=== PATIENT | female | born 1975 | race Caucasian/White ===

== ENCOUNTER 2016-04-05 14:01 | Emergency (ER) | payer BC ==
[2016-04-05 14:29] VITALS: BP 109/69
--- NOTE | 2016-04-05 14:39 | UC ---
Throat Pain/Nasal Ronal HPI - HPI Summary HPI Summary: sore throat x 1 days no nasal congestion, no cough, no fever son and have strep - History of Current Complaint Chief Complaint: UCGeneralIllness Stated Complaint: SORE THROAT Time Seen by Provider: 04/05/16 14:18 Hx Obtained From: Patient Hx Last Menstrual Period: 03/11/16 Onset/Duration: Gradual Onset, Lasting Days - 1, Still Present Severity: Moderate Cough: None Associated Signs & Symptoms: Negative: Sinus Discomfort, Nasal Discharge, Fever , Rash - Allergies/Home Medications Allergies/Adverse Reactions: Allergies Allergy/AdvReac Type Severity Reaction Status Date / Time Penicillins Allergy Intermediate Hives Verified 12/18/13 19:37 Home Medications: Home Medications Bcp 1 tab PO DAILY 04/05/16 [History] PMH/Surg Hx/FS Hx/Imm Hx Previously Healthy: Yes - Surgical History Surgical History: Yes Surgery Procedure, Year, and Place: 3 C-SECTS. CHOLECYSTECTOMY - Family History Known Family History: Negative: Diabetes - Social History Alcohol Use: Occasionally Alcohol Amount: wine Substance Use Type: None Smoking Status (MU): Never Smoked Tobacco Review of Systems Constitutional: Negative Skin: Negative Eyes: Negative ENT: Sore Throat Respiratory: Negative Cardiovascular: Negative All Other Systems Reviewed And Are Negative: Yes Physical Exam Triage Information Reviewed: Yes Appearance: Well-Appearing, No Pain Distress, Well-Nourished Vital Signs: Initial Vital Signs Temp 98.4 F 04/05/16 14:20 Pulse 85 04/05/16 14:20 Resp 16 04/05/16 14:20 BP 109/69 04/05/16 14:20 Pulse Ox 99 04/05/16 14:20 Vital Signs Reviewed: Yes Eye Exam: Normal Eyes: Positive: Conjunctiva Clear ENT: Positive: Normal ENT inspection, Hearing grossly normal, Pharynx normal. Negative: Pharyngeal erythema, Nasal congestion, Nasal drainage Neck: Positive: Supple, Nontender, No Lymphadenopathy Respiratory Exam: Normal Respiratory: Positive: Chest non-tender, Lungs clear, Normal breath sounds, No respiratory distress Cardiovascular Exam: Normal Cardiovascular: Positive: RRR, No Murmur, Pulses Normal Throat Pain/Nasal Course/Dx - Differential Dx/Diagnosis Provider Diagnoses: pharyngitis Discharge - Discharge Plan Condition: Stable Disposition: HOME Patient Education Materials: Pharyngitis (ED) Referrals: Sarahi Huffman PA [Primary Care Provider] - If Needed
== END 2016-04-05 15:18 | disposition home or self-care (01) ==
LOC: UCCORT 14:01
DX: J02.9 Acute pharyngitis, unspecified (principal); Z88.0 Allergy status to penicillin
CPT/HCPCS: 87651; 99211; G0463

== ENCOUNTER 2016-07-29 16:08 | Emergency (ER) | payer BC ==
[2016-07-29 16:43] VITALS: BP 107/71
--- NOTE | 2016-07-29 16:49 | UC ---
Eye Complaint HPI - HPI Summary HPI Summary: complaint of left eyelid swelling since an insect bit her eyelid yesterday took out her contacts woke up this morning and had some purulent driange eyelid was very swollen took a benadryl and ibuprofen with minimal relief denies any vision changes, denies eye pain - History of Current Complaint Chief Complaint: UCEye Stated Complaint: EYELID SWELLING Time Seen by Provider: 07/29/16 16:31 Hx Obtained From: Patient Hx Last Menstrual Period: 04/2016 - was taking a 90 day OCP - Allergies/Home Medications Allergies/Adverse Reactions: Allergies Allergy/AdvReac Type Severity Reaction Status Date / Time Penicillins Allergy Intermediate Hives Verified 07/29/16 16:35 Home Medications: Home Medications Ibuprofen TAB* [Advil TAB*] 400 mg PO Q6H PRN 07/29/16 [History Confirmed ] diPHENhydraMINE PO* [Benadryl PO 25 MG TAB*] 25 mg PO TID PRN 07/29/16 [History Confirmed 07/29/16] PMH/Surg Hx/FS Hx/Imm Hx Previously Healthy: Yes - Surgical History Surgical History: Yes Surgery Procedure, Year, and Place: 3 C-SECTS. CHOLECYSTECTOMY. tubal - Family History Known Family History: Negative: Cardiac Disease, Hypertension, Diabetes - Social History Occupation: Employed Full-time Lives: With Family Alcohol Use: Occasionally Alcohol Amount: wine Substance Use Type: None Smoking Status (MU): Never Smoked Tobacco Review of Systems Constitutional: Negative Skin: Negative Eyes: Other - left eyelid swelling ENT: Negative Respiratory: Negative Cardiovascular: Negative Gastrointestinal: Negative Genitourinary: Negative Motor: Negative Neurovascular: Negative Musculoskeletal: Negative Neurological: Negative Psychological: Negative All Other Systems Reviewed And Are Negative: Yes Physical Exam Triage Information Reviewed: Yes Appearance: No Pain Distress, Well-Nourished Vital Signs: Initial Vital Signs Temp 98.1 F 07/29/16 16:36 Pulse 81 07/29/16 16:36 Resp 16 07/29/16 16:36 BP 107/71 07/29/16 16:36 Pulse Ox 98 07/29/16 16:36 Vital Signs Reviewed: Yes Eyes: Positive: Conjunctiva Clear, Other: - left eyelid swelling EOMI ENT: Positive: Pharynx normal, TMs normal Neck: Positive: No Lymphadenopathy Respiratory: Positive: Lungs clear, Normal breath sounds, No respiratory distress, No accessory muscle use Cardiovascular: Positive: RRR, No Murmur, Pulses Normal Neurological: Positive: Alert Psychological Exam: Normal Skin Exam: Normal Eye Complaint Course/Dx - Course Course Of Treatment: exam completed. will rx bactrim to prevent orbital cellulitis. continue benadryl for 2 more doses - Differential Dx/Diagnosis Differential Diagnosis/HQI/PQRI: Periorbital Cellulitis, Orbital Cellulitis Provider Diagnoses: left eyelid cellulitis Discharge - Discharge Plan Condition: Stable Disposition: HOME Prescriptions: Sulfamethox/Trimethoprim DS* [Bactrim DS 800/160 TAB*] 1 tab PO BID #14 tab Patient Education Materials: Cellulitis (ED) Referrals: Sarahi Huffman PA [Primary Care Provider] - Additional Instructions: Please start antibiotic as directed Increase fluids and rest Take acetaminophen or ibuprofen for fever or pain Please review your discharge instructions. If your symptoms do not improve please call your primary care provider or return to urgent care. CELLULITIS What is Cellulitis? Cellulitis is a bacterial infection of the skin and, sometimes, of the tissues beneath the skin. The skin normally has many types of bacteria on it, but intact skin is an effective barrier that keeps bacteria from entering and growing within the body. When there is a break in the skin, bacteria can enter the body and grow there, causing infection. The infection usually affects outer layers of the skin first, and then spreads deeper into body tissues. Cellulitis can affect any area of the body covered by skin, but it is most common on the face or lower part of the legs. Symptoms Might Include: Skin redness that increases in size as the infection spreads Tight, glossy, "stretched" appearance of the skin Pain or tenderness of the area The affected area may be warm or hot to the touch A thin red line (along a vein) from the cellulitis toward the heart Fever Chills, shaking Muscle aches pains Joint stiffness because of swelling around a joint Treatment Recommendations: The healthcare provider may have prescribed an antibiotic medicine. The medicine should be taken until it is completely gone, even if you are feeling better. If you stop taking the medicine early, the infection may not be completely gone, and the medication may not work the next time. If the infection is on your arm or leg, keep it elevated. You may use warm, wet compresses to relieve the pain and help healing. Soak a clean cloth in warm water, wring it out a little, and apply it to the affected site. Leave the soak in place for 15 minutes and repeat often throughout the day. Rest until the fever is gone and the pain and redness have lessened. You may take ibuprofen (Motrin, Advil), or acetaminophen (Tylenol) for pain. These will help ease some of the symptoms but will not cure the infection. Call Your Doctor or Return Here IF: Your fever does not go down with treatment, or it increases to more than 101 F. You are not starting to get better with the treatment within 24 to 36 hours. You have increasing pain, swelling, or chills. You feel drowsy and lethargic, or you have vomiting or diarrhea. You find the redness is spreading or there are red streaks coming from the infected area. The joint or bone under the infected skin becomes painful after the skin has started to heal. You have any new symptoms that worry you.
== END 2016-07-29 17:01 | disposition home or self-care (01) ==
LOC: UCCORT 16:08
DX: H00.036 Abscess of eyelid left eye, unspecified eyelid (principal)
CPT/HCPCS: 99212; G0463

== ENCOUNTER 2017-09-20 13:25 | Emergency (ER) | payer BC ==
[2017-09-20 14:05] VITALS: BP 116/79
--- NOTE | 2017-09-20 14:07 | UC ---
Ear Complaint HPI - HPI Summary HPI Summary: 41 y/o female presents to the urgent care c/o left ear pain for the past 3 days Pt states pain is 3/10 w/ mild decrease hearing. Pt has taken Ibuprifen PO to alleviate symptoms. Pt denies DELEON, dizziness, fever, URI, chest pain, abdominal pain, N/V/D. - History of Current Complaint Chief Complaint: UCEar Stated Complaint: LEFT EAR CONCERN Time Seen by Provider: 09/20/17 14:05 Hx Obtained From: Patient Hx Last Menstrual Period: 09/11/17 ?: No Onset/Duration: Gradual Onset, Lasting Days - 3 days, Still Present, Worse Since - today Severity Initially: Mild Severity Currently: Mild Pain Intensity: 3 Pain Scale Used: 0-10 Numeric Aggravating Factors: Other - touch Alleviating Factors: OTC Meds Associated Signs/Symptoms: Positive: Swelling @ - Allergies/Home Medications Allergies/Adverse Reactions: Allergies Allergy/AdvReac Type Severity Reaction Status Date / Time MS Penicillins [Penicillins] Allergy Intermediate Hives Verified 07/29/16 16:35 Home Medications: Home Medications Cholecalciferol TAB* [Vitamin D TAB*] 1 each PO DAILY 09/20/17 [History Confirmed 09/20/17] PMH/Surg Hx/FS Hx/Imm Hx Previously Healthy: Yes Other Endocrine History: Vitamin D defficiency - Surgical History Surgical History: Yes Surgery Procedure, Year, and Place: 3 C-SECTS. CHOLECYSTECTOMY. tubal - Family History Known Family History: Positive: Diabetes Negative: Cardiac Disease, Hypertension - Social History Occupation: Employed Full-time Lives: With Family Alcohol Use: Occasionally Alcohol Amount: wine Substance Use Type: None Smoking Status (MU): Never Smoked Tobacco Review of Systems Constitutional: Negative Skin: Negative Eyes: Negative ENT: Ear Ache - left ear pain Respiratory: Negative Cardiovascular: Negative Gastrointestinal: Negative Genitourinary: Negative Motor: Negative Neurovascular: Negative Musculoskeletal: Negative Neurological: Negative Psychological: Negative Is Patient Immunocompromised?: No All Other Systems Reviewed And Are Negative: Yes Physical Exam - Summary Physical Exam Summary: Vital signs: reviewed General: well developed, well nourished female sitting in the examining table w/ o any apparent distress Skin: [place], warm and dry, no evidence of atopic dermatitis, psoriasis, seborrhea. HEENT: -Head: atraumatic, non tender; no scalp dermatitis. -Eyes: sclera and conjunctiva clear, PERRLA, EOMI -Ears: no pre- or postauricular lymphadenopathy or erythema; LF external ear canal with erythema and yellowish purulent discharge, pinna tenderness on palpation, LF TM WNL, RT external ear canal clear and RT TM WNL. -Nose/Face: erythematous and edematous nasal mucosa with clear rhinorrhea, no frontal or maxillary sinus tender to palpation. -Mouth/Throat: Mucous membrane moist, posterior pharynx clear, no erythema or exudates. Neck: supple, FROM, nontender, no lymphadenopathy, no meningismus. Chest: Clear to auscultation, normal breath sounds Abd: soft, Bowel sounds active, Nontender. Back: no spinal or CVAT Neuro: A&O x4, GCS 15, no focal neuro deficits, normal behavior for age. Triage Information Reviewed: Yes Vital Signs: Initial Vital Signs Temp 97.4 F 09/20/17 14:00 Pulse 74 09/20/17 14:00 Resp 16 09/20/17 14:00 BP 116/79 09/20/17 14:00 Pulse Ox 100 09/20/17 14:00 Ear Complaint Course/Dx - Course Course Of Treatment: 41 y/o female presents to the urgent care c/o left ear pain for the past 3 days Pt states pain is 3/10 w/ mild decrease hearing. Pt has taken Ibuprifen PO to alleviate symptoms. Pt denies DELEON, dizziness, fever, URI, chest pain, abdominal pain, N/V/D. Hx obtained. Pt w/ left otitis externa on examination.Pt with a left otitis externa on examination. Pt Rx Cortisporin otic drops. Advised to take ibuprofen PO OTC for pain. If symptoms do not improve or worsen to return to the urgent care or f/u with PCP for further management. Pt understood and agreed with D/C instructions. - Differential Dx/Diagnosis Differential Diagnosis/HQI/PQRI: Cerumen Impaction, Otitis Externa, Otitis Media , Perforated TM Provider Diagnoses: 1- Left otitis externa Discharge - Sign-Out/Discharge Documenting (check all that apply): Patient Departure - D/C home - Discharge Plan Condition: Stable Disposition: HOME Prescriptions: Neomyc/Polym/HC 1% OTIC SUSP* [Cortisporin Otic Susp 1%*] 4 drop LEFT EAR TID # 1 btl Patient Education Materials: Otitis Externa (ED) Referrals: Sarahi Huffman PA [Primary Care Provider] - 3 Days Additional Instructions: 1-Please apply otic antibiotic on your LF ear as directed. 2-Take ibuprofen PO q6-8hrs after meals for pain. 3-If symptoms do not improve or worsen please f/u with your PCP or return to the urgent care for further evaluation and treatment. Per institutional requirements, I have reviewed the chart, however, I was not consulted specifically or made aware of this patient by the above midlevel provider. I did not personally evaluate, interact with , or disposition this patient. - Billing Disposition and Condition Condition: STABLE Disposition: Home
== END 2017-09-20 15:02 | disposition home or self-care (01) ==
LOC: UCCORT 13:25
DX: H60.92 Unspecified otitis externa, left ear (principal); E55.9 Vitamin D deficiency, unspecified; Z88.0 Allergy status to penicillin
CPT/HCPCS: 99212; G0463

== ENCOUNTER 2018-02-05 09:01 | Emergency (ER) | payer BC ==
[2018-02-05 09:59] VITALS: BP 116/73
--- NOTE | 2018-02-05 10:04 | UC ---
Complaint Female HPI - HPI Summary HPI Summary: 24 hours of urinary frequency , urgency and burning, denies back pain or fever - History Of Current Complaint Chief Complaint: UCGU Stated Complaint: URINARY Time Seen by Provider: 02/05/18 09:56 Hx Obtained From: Patient Hx Last Menstrual Period: 01/23/18 Onset/Duration: Sudden Onset, Lasting Days - 1 Severity Initially: Mild Severity Currently: Mild Pain Intensity: 2 Character: Burning Aggravating Factor(s): Urination - Allergies/Home Medications Allergies/Adverse Reactions: Allergies Allergy/AdvReac Type Severity Reaction Status Date / Time Penicillins Allergy Hives Verified 02/05/18 09:57 PMH/Surg Hx/FS Hx/Imm Hx Previously Healthy: Yes - Surgical History Surgical History: Yes Surgery Procedure, Year, and Place: 3 C-SECTS. CHOLECYSTECTOMY. tubal - Family History Known Family History: Positive: Diabetes Negative: Cardiac Disease, Hypertension - Social History Alcohol Use: Occasionally Alcohol Amount: wine Substance Use Type: None Smoking Status (MU): Never Smoked Tobacco Review of Systems All Other Systems Reviewed And Are Negative: Yes Constitutional: Positive: Negative Skin: Positive: Negative Eyes: Positive: Negative ENT: Positive: Negative Respiratory: Positive: Negative Cardiovascular: Positive: Negative Gastrointestinal: Positive: Negative Genitourinary: Positive: Dysuria, Frequency, Urgency Motor: Positive: Negative Neurovascular: Positive: Negative Musculoskeletal: Positive: Negative Neurological: Positive: Negative Psychological: Positive: Negative Is Patient Immunocompromised?: No Physical Exam Vital Signs: Initial Vital Signs Temp 97.5 F 02/05/18 09:55 Pulse 71 02/05/18 09:55 Resp 16 02/05/18 09:55 BP 116/73 02/05/18 09:55 Pulse Ox 98 02/05/18 09:55 Complaint Female Dx - Course Course Of Treatment: hx obtained, exam performed, meds reviewed, UA obtained and treated for a UTI, - Differential Dx/Diagnosis Differential Diagnosis/HQI/PQRI: Urinary Tract Infection Provider Diagnosis: UTI (urinary tract infection) Discharge - Sign-Out/Discharge Documenting (check all that apply): Patient Departure All imaging exams completed and their final reports reviewed: No Studies - Discharge Plan Condition: Stable Disposition: HOME Prescriptions: Phenazopyridine TAB* [Pyridium 100 mg TAB*] 100 mg PO TID #6 tab Sulfamethox/Trimethoprim DS* [Bactrim DS 800/160 TAB*] 1 tab PO BID #14 tab Referrals: Sarahi Huffman PA [Primary Care Provider] - - Billing Disposition and Condition Condition: STABLE Disposition: Home - Attestation Statements Provider Attestation: Per institutional requirements, I have reviewed the chart, however, I was not consulted specifically or made aware of this patient by the midlevel provider. I did not personally evaluate, interact with , or disposition this patient.
[2018-02-05] MEDS ORDERED: Phenazopyridine TAB* 100 MG PO ONE (10:11)
== END 2018-02-05 10:18 | disposition home or self-care (01) ==
LOC: UCCORT 09:01
DX: B96.20 Unspecified Escherichia coli [E. coli] as the cause of diseases classified elsewhere (principal); Z88.0 Allergy status to penicillin; N39.0 Urinary tract infection, site not specified
CPT/HCPCS: 81003; 87077; 87086; 87186; 99212; A9270-GY; G0463

== ENCOUNTER 2018-03-25 09:07 | Emergency (ER) | payer BC ==
[2018-03-25 09:44] VITALS: BP 114/75
--- NOTE | 2018-03-25 10:34 | UC ---
Throat Pain/Nasal Ronal HPI - HPI Summary HPI Summary: sore throat x 2 day nasal congestion , no cough , no fever, no chills no body aches - History of Current Complaint Chief Complaint: UCGeneralIllness Stated Complaint: SORE THROAT, EAR CONCERN Time Seen by Provider: 03/25/18 09:48 Hx Obtained From: Patient Hx Last Menstrual Period: 03/14/18 Onset/Duration: Gradual Onset, Lasting Days - 2, Still Present Severity: Mild Pain Intensity: 2 Cough: None Associated Signs & Symptoms: Positive: Nasal Discharge. Negative: Dysphagia, FB Sensation, Drooling, Wheezing, Hoarseness, Sinus Discomfort, Fever, Vomiting , Rash - Allergies/Home Medications Allergies/Adverse Reactions: Allergies Allergy/AdvReac Type Severity Reaction Status Date / Time Penicillins Allergy Hives Verified 03/25/18 09:39 Home Medications: Home Medications NK [No Home Medications Reported] 03/25/18 [History Confirmed 03/25/18] PMH/Surg Hx/FS Hx/Imm Hx Previously Healthy: Yes - Surgical History Surgical History: Yes Surgery Procedure, Year, and Place: 3 C-SECTS. CHOLECYSTECTOMY. tubal - Family History Known Family History: Positive: Diabetes Negative: Cardiac Disease, Hypertension - Social History Alcohol Use: Occasionally Alcohol Amount: wine Substance Use Type: None Smoking Status (MU): Never Smoked Tobacco Review of Systems All Other Systems Reviewed And Are Negative: Yes Constitutional: Positive: Negative Skin: Positive: Negative Eyes: Positive: Negative ENT: Positive: Sore Throat Respiratory: Positive: Negative Is Patient Immunocompromised?: No Physical Exam Triage Information Reviewed: Yes Appearance: Well-Appearing, No Pain Distress, Well-Nourished Vital Signs: Initial Vital Signs Temp 98.1 F 03/25/18 09:40 Pulse 83 03/25/18 09:40 Resp 16 03/25/18 09:40 BP 114/75 03/25/18 09:40 Pulse Ox 98 03/25/18 09:40 Vital Signs Reviewed: Yes Eye Exam: Normal Eyes: Positive: Conjunctiva Clear ENT: Positive: Normal ENT inspection, Hearing grossly normal, Pharynx normal Neck exam: Normal Neck: Positive: Supple, Nontender, No Lymphadenopathy Respiratory: Positive: Chest non-tender, Lungs clear, Normal breath sounds Cardiovascular: Positive: RRR, No Murmur, Pulses Normal Skin Exam: Normal Throat Pain/Nasal Course/Dx - Differential Dx/Diagnosis Provider Diagnosis: Pharyngitis Discharge - Sign-Out/Discharge Documenting (check all that apply): Patient Departure All imaging exams completed and their final reports reviewed: No Studies - Discharge Plan Condition: Stable Disposition: HOME Patient Education Materials: Pharyngitis (ED) Referrals: Sarahi Huffman PA [Primary Care Provider] - If Needed Additional Instructions: viral pharyngitis - Billing Disposition and Condition Condition: STABLE Disposition: Home
== END 2018-03-25 10:36 | disposition home or self-care (01) ==
LOC: UCCORT 09:07
DX: J02.9 Acute pharyngitis, unspecified (principal); R09.81 Nasal congestion; Z88.0 Allergy status to penicillin
CPT/HCPCS: 87651; 99211; G0463

== ENCOUNTER 2018-08-01 10:43 | Emergency (ER) | payer BC ==
[2018-08-01 11:16] VITALS: BP 115/81
--- NOTE | 2018-08-01 12:17 | UC ---
Skin Complaint HPI - HPI Summary HPI Summary: 42 year old female presents with redness with associated drainage on anterior lower abdomen. Denies fever, chills. - redness started ~ 4-5 days ago, green/ yellow purulent drainage ~ 4 days ago, expressed out by patient. since, no drainage but continues to be tender, redness increasing. - Patient has been in hospital for the past month while her mother was hospitalized. no h/o MRSA/ VRE - History of Current Complaint Chief Complaint: UCSkin Time Seen by Provider: 08/01/18 11:09 Stated Complaint: SKIN CONCERN ON BELLY Hx Obtained From: Patient Hx Last Menstrual Period: 07/28/18 ?: No Onset/Duration: Sudden Onset, Lasting Days, Still Present Skin Exposure Onset/Duration: Days Ago - 4-5 days Onset Severity: Moderate Current Severity: Moderate Pain Intensity: 6 Pain Scale Used: 0-10 Numeric Location: Discrete - anterior abdomen - Allergy/Home Medications Allergies/Adverse Reactions: Allergies Allergy/AdvReac Type Severity Reaction Status Date / Time Penicillins Allergy Hives Verified 08/01/18 11:16 PMH/Surg Hx/FS Hx/Imm Hx Previously Healthy: Yes - Surgical History Surgical History: Yes Surgery Procedure, Year, and Place: 3 C-SECTS. CHOLECYSTECTOMY. tubal - Family History Known Family History: Positive: Diabetes Negative: Cardiac Disease, Hypertension - Social History Alcohol Use: Occasionally Alcohol Amount: wine Substance Use Type: None Smoking Status (MU): Never Smoked Tobacco Review of Systems All Other Systems Reviewed And Are Negative: Yes Constitutional: Negative: Fever, Chills Skin: Positive: Other - redness, drainage irritation Psychological: Negative: Anxious Is Patient Immunocompromised?: No Physical Exam Appearance: Well-Appearing, No Pain Distress, Well-Nourished Vital Signs: Initial Vital Signs Temp 97.5 F 08/01/18 11:11 Pulse 79 08/01/18 11:11 Resp 16 08/01/18 11:11 BP 115/81 08/01/18 11:11 Pulse Ox 97 08/01/18 11:11 Vital Signs Reviewed: Yes Eyes: Positive: Conjunctiva Clear Musculoskeletal Exam: Normal Neurological Exam: Normal Psychological Exam: Normal Skin: Positive: Other - ~ 2cm erythema with induration noted over right lower abdomen, no LAD, no streaking, no fluctuant area. Course/Dx - Course Course Of Treatment: Cellulitis - Antibiotics four times a day x 7 days - Warm compresses 2-3 times a day to facilitate drainage - Return with increased redness, soreness. - Increase fluid intake. tylenol/ motrin as needed for pain - Differential Diagnoses - Skin Complaint Differential Diagnoses: Cellulitis, Foreign Body, Urticaria - Diagnoses Provider Diagnosis: Cellulitis Discharge - Sign-Out/Discharge Documenting (check all that apply): Patient Departure All imaging exams completed and their final reports reviewed: No Studies - Discharge Plan Condition: Good Disposition: HOME Prescriptions: Clindamycin HCl 300 mg PO QID #28 capsule Patient Education Materials: Cellulitis (ED) Referrals: Sarahi Huffman PA [Primary Care Provider] - Additional Instructions: - Antibiotics four times a day x 7 days - Warm compresses 2-3 times a day to facilitate drainage - Return with increased redness, soreness. - Increase fluid intake. tylenol/ motrin as needed for pain - Billing Disposition and Condition Condition: GOOD Disposition: Home
== END 2018-08-01 11:44 | disposition home or self-care (01) ==
LOC: UCCORT 10:43
DX: L03.311 Cellulitis of abdominal wall (principal)
CPT/HCPCS: 99212; G0463

== ENCOUNTER 2019-04-10 19:03 | Emergency (ER) | payer BC ==
[2019-04-10 19:51] VITALS: BP 112/70
--- NOTE | 2019-04-10 20:11 | UC ---
Respiratory Complaint HPI - HPI Summary HPI Summary: 43 yo female with cough and runny nose < 48 hours mild DELEON and myalgias no f/c - History of Current Complaint Chief Complaint: UCGeneralIllness Stated Complaint: SINUS COMPLAINT Time Seen by Provider: 04/10/19 20:10 Hx Obtained From: Patient Hx Last Menstrual Period: 07/28/18 Onset/Duration: Gradual Onset, Lasting Days Timing: Constant Severity Initially: Mild Severity Currently: Mild Pain Intensity: 3 Pain Scale Used: 0-10 Numeric Character: Cough: Nonproductive Aggravating Factors: Nothing Alleviating Factors: Nothing Associated Signs And Symptoms: Positive: Nasal Congestion - Allergies/Home Medications Allergies/Adverse Reactions: Allergies Allergy/AdvReac Type Severity Reaction Status Date / Time Penicillins Allergy Hives Verified 04/10/19 19:52 Home Medications: Home Medications Benzonatate CAP* [Tessalon CAP*] 100 - 200 mg PO TID PRN #28 cap 04/10/19 [Rx] Cholecalciferol TAB* [Vitamin D TAB*] 2,000 units PO WEEKLY 04/10/19 [History Confirmed 04/10/19] PMH/Surg Hx/FS Hx/Imm Hx Previously Healthy: Yes - Surgical History Surgical History: Yes Surgery Procedure, Year, and Place: 3 C-SECTS. CHOLECYSTECTOMY. tubal - Family History Known Family History: Positive: Diabetes Negative: Cardiac Disease, Hypertension - Social History Alcohol Use: Occasionally Alcohol Amount: wine Substance Use Type: None Smoking Status (MU): Never Smoked Tobacco Review of Systems All Other Systems Reviewed And Are Negative: Yes Constitutional: Positive: Fatigue Skin: Positive: Negative Eyes: Positive: Negative ENT: Positive: Nasal Discharge Respiratory: Positive: Cough Cardiovascular: Positive: Negative Gastrointestinal: Positive: Negative Genitourinary: Positive: Negative Motor: Positive: Negative Neurovascular: Positive: Negative Musculoskeletal: Positive: Negative Neurological/Mental Status: Positive: Negative Psychological: Positive: Negative Physical Exam Triage Information Reviewed: Yes Appearance: Well-Appearing, No Pain Distress, Well-Nourished Vital Signs: Initial Vital Signs Temp 99.2 F 04/10/19 19:47 Pulse 95 04/10/19 19:47 Resp 18 04/10/19 19:47 BP 112/70 04/10/19 19:47 Pulse Ox 98 04/10/19 19:47 Vital Signs Reviewed: Yes Eyes: Positive: Conjunctiva Clear ENT: Positive: Hearing grossly normal, Pharyngeal erythema, Nasal congestion, Nasal drainage, TMs normal. Negative: Tonsillar swelling, Tonsillar exudate, Trismus, Muffled voice, Hoarse voice, Sinus tenderness, Uvula midline Dental Exam: Normal Neck: Positive: Supple, Nontender, No Lymphadenopathy Respiratory: Positive: Lungs clear, Normal breath sounds, No respiratory distress Cardiovascular: Positive: RRR, No Murmur Musculoskeletal: Positive: ROM Intact, No Edema Neurological: Positive: Alert Psychological Exam: Normal Skin Exam: Normal Diagnostics - Laboratory Lab Results: influenza (-) Respiratory Course/Dx - Differential Dx/Diagnosis Provider Diagnosis: Viral URI with cough Discharge ED - Sign-Out/Discharge Documenting (check all that apply): Patient Departure All imaging exams completed and their final reports reviewed: No Studies - Discharge Plan Condition: Stable Disposition: HOME Prescriptions: Benzonatate CAP* [Tessalon CAP*] 100 - 200 mg PO TID PRN #28 cap PRN Reason: Cough Patient Education Materials: Upper Respiratory Infection (ED) Referrals: Sarahi Huffman PA [Primary Care Provider] - 4 Days (if not improved ) Additional Instructions: influenza (-) saline nasal spray afrin nasal spray 2 sprays each nostril three times a day for three days - Billing Disposition and Condition Condition: STABLE Disposition: Home
[2019-04-10 20:37] LABS: Influenza A Molecular Negative (Negative); Influenza B Molecular Negative (Negative)
== END 2019-04-10 20:45 | disposition home or self-care (01) ==
LOC: UCCORT 19:03
DX: J06.9 Acute upper respiratory infection, unspecified (principal); R05 Cough; Z88.0 Allergy status to penicillin
CPT/HCPCS: 99212; G0463